=== PATIENT | male | born 1970 | race Caucasian/White ===

== ENCOUNTER 2018-06-19 12:35 | Emergency (ER) | payer MEDICAID ==
[~2018-06-19] VITALS: Ht 167.6 cm; Wt 71.2 kg
[2018-06-19 12:45] VITALS: BP_SYST 136
[2018-06-19] MEDS ORDERED: IBUPROFEN 600 MG TABLET PO ONE (13:45)
[2018-06-19] MEDS ORDERED: LIDOCAINE 1% 10 MG/ML, 20 ML MDV INJ ONE (13:45)
[2018-06-19] MEDS ORDERED: LIDOCAINE JELLY 5 ML TUBE MM ONE (13:45)
[2018-06-19 14:45] VITALS: BP_SYST 149
== END 2018-06-19 14:45 | disposition home or self-care (01) ==
LOC: SED 12:35
DX: N47.2 Paraphimosis (principal); R03.0 Elevated blood-pressure reading, without diagnosis of hypertension
CPT/HCPCS: 99283; J2001

== ENCOUNTER 2019-02-14 09:54 | Emergency (ER) | payer MEDICAID ==
[~2019-02-14] VITALS: Ht 167.6 cm; Wt 73.9 kg
[2019-02-14 10:15] VITALS: BP_SYST 163
[2019-02-14] MEDS ORDERED: BACITRACIN 1 GM OINT TP ONE ×2 (11:00)
== END 2019-02-14 11:11 | disposition home or self-care (01) ==
LOC: SED 09:54
DX: N48.89 Other specified disorders of penis (principal)
CPT/HCPCS: 99283

== ENCOUNTER 2022-05-05 19:46 | Emergency (ER) | payer MEDICAID ==
[~2022-05-05] VITALS: Ht 162.6 cm; Wt 79.4 kg
[2022-05-05 19:55] VITALS: BP_SYST 136
[2022-05-05] MEDS ORDERED: ACYC-133 PO (22:33)
[2022-05-05] MEDS ORDERED: TRAM50TA2 PO (22:33)
[2022-05-05 22:42] VITALS: BP_SYST 134
== END 2022-05-05 22:42 | disposition home or self-care (01) ==
LOC: SED 19:46
DX: B02.9 Zoster without complications (principal); R21 Rash and other nonspecific skin eruption; Z79.899 Other long term (current) drug therapy
CPT/HCPCS: 99283